=== PATIENT | male | born 1960 | race African-American/Black ===

== ENCOUNTER 2025-01-30 20:36 | Emergency (ER) | payer OTHER ==
[~2025-01-30] VITALS: Ht 182.9 cm; Wt 90.0 kg
[2025-01-30 20:43] VITALS: O2SAT 97
[2025-01-30 22:01] LABS: BASOPHILS % 0.3 % (0.0-2.0); EOSINOPHILS % 2.0 % (0.0-5.0); HEMATOCRIT. 40.1 % (42.0-52.0); HEMOGLOBIN. 13.3 g/dL (14.0-18.0); LYMPHOCYTES % 12.1 % (20.0-50.0); MEAN PLATELET VOLUME 8.6 fl (7.4-10.4); MONOCYTES % 7.2 % (2.0-8.0); NEUTROPHILS % 78.4 % (40.0-76.0); PLATELET 222 x1000/uL (130-400); RED BLOOD CELL COUNT 4.65 mill/uL (4.7-6.1); RED CELL DISTRIBUTION WIDTH 16.0 % (11.6-14.6)
[2025-01-30 22:12] LABS: INR 1.0
[2025-01-30 22:16] LABS: CREATININE 1.6 mg/dL (0.6-1.3); UREA NITROGEN BLOOD 13 mg/dL (9-23)
[2025-01-30 22:17] LABS: TROPONIN I HIGH SENSITIVITY 18 ng/L (3.0-53)
[2025-01-30 22:18] LABS: ASPARTATE AMINOTRANSFERASE 34 IU/L (<34); BILIRUBIN DIRECT 0.2 mg/dL (<=3.0)
[2025-01-30 22:19] LABS: BILIRUBIN TOTAL 0.7 mg/dL (0.1-1.0); PROTEIN TOTAL 6.8 g/dL (6.0-8.3)
[2025-01-30] MEDS: LEVETIRACETAM 250MG TABLET PO ONE (23:15)
[2025-01-30] MEDS: LEVETIRACETAM 500MG TABLET PO ONE (23:15)
[2025-01-30] MEDS: ASPIRIN 81MG EC TABLET PO ONE (23:15)
[2025-01-30] MEDS: CLOPIDOGREL 75MG TABLET PO ONE (23:15)
[2025-01-30] MEDS: IOHEXOL-350 100 ML BOTTLE ONE (23:24)
[2025-01-31] MEDS: ATORVASTATIN CALCIUM 40MG TABLET PO SCH (00:56)
[2025-01-31 03:03] VITALS: BP 122/93; PULSE 67; RESP 11; TEMP 36.3; O2SAT 97
== END 2025-01-31 03:30 | disposition short-term general hospital (02) ==
LOC: ER 20:36 → CMPBEDREQ 01-31 08:09
DX: R29.810 Facial weakness (principal); R47.81 Slurred speech; Z86.73 Personal history of transient ischemic attack (TIA), and cerebral infarction without residual deficits; Z79.899 Other long term (current) drug therapy
CPT/HCPCS: 80076; 80048; 80320; 85025; 85610; 85730; 84484; 36415; 71045; 70496; 70498; 70450; 93005; 99291; Q9967; G0480